=== PATIENT | male | born 1985 | race Caucasian/White ===

== ENCOUNTER 2017-10-16 01:17 | Emergency (ER) | payer OTHER ==
[2017-10-16] MEDS ORDERED: Naproxen 550 mg Tab PO STA (02:21)
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
[2017-10-16] MEDS ORDERED: Naproxen 550 mg Tab PO ONE (03:33)
[2017-10-16 04:39] VITALS: BP 138/84; PULSE 84; RESP 18; TEMP 97.5
[2017-10-16 06:34] VITALS: O2SAT 97
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
== END 2017-10-16 04:39 | disposition home or self-care (01) ==
LOC: C.ER 01:17
DX: M54.5 Low back pain (principal); V43.52XA Car driver injured in collision with other type car in traffic accident, initial encounter